=== PATIENT | male | born 2000 | race Caucasian/White ===

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

== ENCOUNTER 2020-04-09 09:05 | Day surgery (SDC) | payer OTHER ==
[~2020-04-09] VITALS: Ht 172.7 cm; Wt 57.2 kg
[~2020-04-09 09:05] MED LIST: MULTCAP PO; NS 1,000 ML IV ONE
[2020-04-09] MEDS ORDERED: propofoL 200 MG/20 ML VIAL As Ordered ONE (10:06)
[2020-04-09] MEDS ORDERED: LIDOCAINE 2% 100MG/5ML SDV (FOR ANES.) As Ordered ONE (10:06)
--- NOTE | 2020-04-09 10:43 | ROOR ---
Patient Name: Donovan Romo Procedure Date: 04/09/2020 10:20 AM Date of : 2000 Age: 20 Room: [facility] Gender: Male Note Status: Finalized Procedure: Total Colonoscopy to Cecum + ileoscopy Indications: Abdominal pain in the left lower quadrant, Rectal bleeding Providers: Braeden Krishna MD Referring MD: ANT CAIN MD Requesting Provider: Medicines: Monitored Anesthesia Care Complications: No immediate complications. Procedure: Pre-Anesthesia Assessment: - The heart rate, respiratory rate, oxygen saturations, blood pressure, adequacy of pulmonary ventilation, and response to care were monitored throughout the procedure. The Colonoscope was introduced through the anus and advanced to the terminal ileum, with identification of the appendiceal orifice and IC valve. The colonoscopy was performed without difficulty. The patient tolerated the procedure well. The quality of the bowel preparation was excellent. Findings: The perianal and digital rectal examinations were normal. Non-bleeding internal hemorrhoids were found during retroflexion. The hemorrhoids were small and Grade I (internal hemorrhoids that do not prolapse). No other significant abnormalities were identified in a careful examination of the remainder of the colon. The terminal ileum appeared normal. The exam was otherwise without abnormality on direct and retroflexion views. Impression: - Non-bleeding internal hemorrhoids. - The examined portion of the ileum was normal. - The examination was otherwise normal on direct and retroflexion views. - No specimens collected. - The exam was otherwise normal to the cecum. Recommendation: - Patient has a contact number available for emergencies. The signs and symptoms of potential delayed complications were discussed with the patient. Return to normal activities tomorrow. Written discharge instructions were provided to the patient. - High fiber diet. - Discharge patient to home. - Continue present medications. - Preparation H cream: Apply externally as necessary. - Return to referring physician. - The findings and recommendations were discussed with the patient. Braeden Krishna MD Braeden Krishna MD 04/09/2020 10:42:59 AM Electronically signed by Braeden Krishna MD Number of Addenda: 0 Note Initiated On: 04/09/2020 10:20 AM Estimated Blood Loss: Estimated blood loss: none.
[2020-04-09 10:55] VITALS: BP 112/61
== END 2020-04-09 11:20 | disposition home or self-care (01) ==
LOC: M OPP 09:05
PROVIDERS: ATTEND Internal Medicine Gastroenterology
DX: K62.5 Hemorrhage of anus and rectum (principal); R10.32 Left lower quadrant pain; J45.909 Unspecified asthma, uncomplicated; Z88.0 Allergy status to penicillin; F12.10 Cannabis abuse, uncomplicated

== ENCOUNTER → 2020-10-14 | Outpatient (CLI) | payer SELFPAY ==
[~2020-10-14] MED LIST changes: -NS 1,000 ML IV ONE
== END ==
LOC: M LABSMTC 12:09
PROVIDERS: ATTEND Pediatrics
DX: Z20.822 Contact with and (suspected) exposure to COVID-19 (principal)

== ENCOUNTER → 2021-11-02 | Outpatient (CLI) | payer OTHER | LOC: M RAD 10:56 | PROVIDERS: ATTEND Physician Assistant | DX: H53.9 Unspecified visual disturbance (principal) ==

== ENCOUNTER → 2022-11-18 | Outpatient (CLI) | payer OTHER | LOC: M SOG 08:15 | PROVIDERS: ATTEND Physician Assistant | DX: M25.531 Pain in right wrist (principal) ==

== ENCOUNTER 2023-02-01 09:23 | Day surgery (SDC) | payer OTHER ==
[~2023-02-01] VITALS: Ht 175.3 cm; Wt 61.3 kg
[~2023-02-01 09:23] MED LIST changes: +ARTIDRO4 OU; +DESV100T PO; +LIDOCAINE 2% W/EPINEPHRINE 20ML VIAL **PRES FREE As Ordered ONE; +TOBRADEX OPHTH OINT 3.5 GM As Ordered ONE; +VITMTA PO
[2023-02-01 12:05] VITALS: BP 116/80; TEMP 98.1; O2SAT 96
[2023-02-01] MEDS ORDERED: fentaNYL 100 MCG/2 ML INJECTION As Ordered ONE (12:05)
[2023-02-01] MEDS ORDERED: MIDAZOLAM INJ 2MG/2ML VIAL As Ordered ONE (12:05)
== END 2023-02-01 12:33 | disposition home or self-care (01) ==
LOC: M SDC 09:23 → M OPP 09:23
PROVIDERS: ATTEND Ophthalmology
DX: H11.9 Unspecified disorder of conjunctiva (principal); F41.1 Generalized anxiety disorder; F33.0 Major depressive disorder, recurrent, mild; R07.9 Chest pain, unspecified; Z79.899 Other long term (current) drug therapy; Z88.0 Allergy status to penicillin
CPT/HCPCS: 68110; 88304; J2250; J3010

== ENCOUNTER → 2023-05-30 | Outpatient (REF) | payer OTHER ==
[~2023-05-30] MED LIST changes: -LIDOCAINE 2% W/EPINEPHRINE 20ML VIAL **PRES FREE As Ordered ONE; -TOBRADEX OPHTH OINT 3.5 GM As Ordered ONE
[2023-05-30 18:21] LABS: ALBUMIN 4.1 G/DL (3.2-5.2); ALKALINE PHOSPHATASE 65 U/L (46-116); ALT/SGPT 25 U/L (7.0-40); AST/SGOT 13 U/L (<34); BILIRUBIN,TOTAL 1.7 MG/DL (0.3-1.2); BLOOD UREA NITROGEN 14 MG/DL (9-23); CALCIUM LEVEL 9.1 MG/DL (8.5-10.1); CARBON DIOXIDE LEVEL 31 MMOL/L (20-31); CHLORIDE LEVEL 105 MMOL/L (98-107); CREATININE FOR GFR 0.93 MG/DL (0.70-1.30); GLOMERULAR FILTRATION RATE > 60.0 (>60); GLUCOSE, FASTING 87 MG/DL (60-100); POTASSIUM SERUM 3.8 MMOL/L (3.5-5.1); SODIUM LEVEL 141 MMOL/L (136-145)
[2023-05-30 18:22] LABS: BASO % 0.3 % (0.0-1.0); EOS % 0.1 % (0.0-3.0); HEMOGLOBIN 15.8 g/dl (13.5-17.5); LYMPH # 1.7 10^3/uL (1.5-5.0); LYMPH % 24.5 % (24.0-44.0); MEAN CORPUSCULAR HEMOGLOBIN 30.2 pg (27.0-33.0); MEAN CORPUSCULAR HGB CONC 34.3 g/dl (32.0-36.5); MEAN CORPUSCULAR VOLUME 87.8 fl (80.0-96.0); MONO # 0.7 10^3/uL (0.0-0.8); MONO % 9.5 % (2.0-8.0); NEUTROPHILS # 4.5 10^3/uL (1.5-8.5); NEUTROPHILS % 65.5 % (36.0-66.0); PLATELET COUNT, AUTOMATED 223 10^3/uL (150-450); RED BLOOD COUNT 5.24 10^6/uL (4.30-6.10); WHITE BLOOD COUNT 6.9 10^3/uL (4.0-10.0)
[2023-05-30 18:24] LABS: THYROID STIMULATING HORMONE 1.715 uIU/ML (0.55-4.78)
== END ==
LOC: M LAB REF 16:30
PROVIDERS: ATTEND Pediatrics
DX: Z51.81 Encounter for therapeutic drug level monitoring (principal); E55.9 Vitamin D deficiency, unspecified

== ENCOUNTER → 2025-07-16 | Outpatient (REF) | payer OTHER, BC | LOC: M LAB REF 16:30 | PROVIDERS: ATTEND Pediatrics | DX: Z78.9 Other specified health status (principal) ==